=== PATIENT | female | born 1995 | race Caucasian/White ===

== ENCOUNTER → 2016-05-02 | Outpatient (CLI) | payer BC ==
[2015-04-22 09:11] VITALS: BP 125/74
--- NOTE | 2016-05-02 14:15 | RAD ---
HISTORY: Ganglion cyst Study: Three views of the left wrist Comparison: None Findings: Normal alignment. No acute fracture or dislocation. The soft tissues are unremarkable. IMPRESSION: 1. No acute osseous abnormality. Reported By:
== END ==
LOC: RAD 13:32
PROVIDERS: ATTEND Specialist
DX: M67.432 Ganglion, left wrist (principal)
CPT/HCPCS: 73100

== ENCOUNTER → 2016-07-11 | Outpatient (CLI) | payer BC ==
[2015-04-22 09:11] VITALS: BP 125/74
--- NOTE | 2016-07-12 09:29 | MRI ---
HISTORY: Wrist pain. EXAM: Non-contrast MRI exam of the left wrist. Technique: Multiplanar and multisequence MR examination of the left wrist is performed at 1.5 Mirela without the use of IV contrast. Findings: There is abnormal bone marrow edema seen within the distal 3rd/volar aspect of the scaphoid bone the scaphoid tubercle with the suggestion of a developing 'fracture' of the distal 3rd of the scaphoid bone which is probably stress related. There is adjacent edema and a T2 intense soft tissue lesion s een just beneath/volar to the flexor carpi radialis tendon on image number 13 of series 601 that isreal sures 6 x 5 millimeters, most compatible with a ganglion cyst. The combination of these findings cou ld certainly account for the patient's left-sided wrist pain and numbness. Please clinically correla te. There is no other acute fracture or focal bone marrow contusion seen. There is no evidence for osteo necrosis or a DISI / VISI deformity. The scapholunate and lunotriquetral ligaments are intact withou t tear or widening of the scapholunate or lunotriquetral intervals. There is no high-grade TFCC tear appreciated. There is no evidence for a scaphoid or carpal bone fracture. There is no significant are high-grade proximal and mid-carpal row articular cartilage loss, joint space narrowing, or degen erative change. There is no evidence for synovitis, focal joint erosion, or an inflammatory arthriti s. The transverse carpal ligament is intact. There is no tenosynovitis of the wrist tendons without addition tendon abnormalities seen. No vascular abnormalities are observed. No solid soft tissue mas ses are seen. No abnormality is seen involving the volar and/or dorsal extrinsic wrist ligaments and joint capsule. No other MSK abnormalities are seen. No susceptibility artifact is seen. IMPRESSION: Abnormal bone marrow edema seen within the distal 3rd/volar aspect of the scaphoid bone \T\ scaphoid tubercle with the suggestion of a developing where 'fracture' of the distal 3rd of the scaphoid bon e that is like stress induced. There is also adjacent edema and a T2 intense soft tissue lesion seen just beneath/volar to the flexor carpi radialis tendon on image number 13 of series 601 that measur es 6 x 5 millimeters, most compatible with a ganglion cyst. The combination of these MRI findings co uld certainly account for the patient's left-sided wrist pain and numbness. Please clinically correl ate. No other wrist joint abnormalities seen. Reported By:
== END ==
LOC: RAD 14:54
PROVIDERS: ATTEND Nurse Practitioner Family
DX: R22.32 Localized swelling, mass and lump, left upper limb (principal); R20.2 Paresthesia of skin
CPT/HCPCS: 73221

== ENCOUNTER → 2016-07-17 | Outpatient (CLI) | payer BC ==
[2015-04-22 09:11] VITALS: BP 125/74
[2016-07-17 09:02] LABS: BILIRUBIN,URINE NEGATIVE (NEGATIVE); BLOOD/HEMOGLOBIN,URINE 5+ (NEGATIVE); GLUCOSE, URINE NEGATIVE (NEGATIVE); KETONES,URINE NEGATIVE (NEGATIVE); LEUKOCYTE ESTERASE ,URINE NEGATIVE (NEGATIVE); NITRITES,URINE NEGATIVE (NEGATIVE); PROTEIN,URINE 1+ (NEGATIVE); UROBILINOGEN,URINE 1+ (NORMAL)
[2016-07-17 09:04] LABS: BASOPHILS % (AUTO) 0.6 % (0.2-1.0); EOSINOPHILS # (AUTO) 0.2 x10^3/uL (0.0-0.2); EOSINOPHILS % (AUTO) 2.4 % (0.9-2.9); HEMATOCRIT 41.5 % (36.0-47.0); HEMOGLOBIN 14.4 g/dL (12.0-16.0); LYMPHOCYTES # (AUTO) 1.9 X10^3/uL (1.3-2.9); LYMPHOCYTES % (AUTO) 28.5 % (21.0-51.0); MEAN CORPUSCULAR HEMOGLOBIN 28.1 pg (27.0-34.0); MEAN CORPUSCULAR HGB CONC 34.6 g/dL (33.0-35.0); MEAN CORPUSCULAR VOLUME 81.1 fL (80.0-100.0); MEAN PLATELET VOLUME 8.4 fL (7.4-11.0); MONOCYTES # (AUTO) 0.5 x10^3/uL (0.3-0.8); MONOCYTES % (AUTO) 7.4 % (0.0-13.0); NEUTROPHILS % (AUTO) 61.1 % (42.0-75.0); PLATELET COUNT 279 X10^3/uL (150.0-450.0); RED BLOOD COUNT 5.11 X10^6/uL (3.5-5.4); WHITE BLOOD COUNT 6.5 X10^3/uL (3.6-10.0)
[2016-07-17 09:05] LABS: ALANINE AMINOTRANSFERASE 33 Units/L (12-78); ALBUMIN 3.5 g/dL (3.4-5.0); ALKALINE PHOSPHATASE 78 Units/L (46-116); ASPARTATE AMINO TRANSFERASE 18 Units/L (15-37); BLOOD UREA NITROGEN 14 mg/dL (7-18); CALCIUM 8.6 mg/dL (8.5-10.1); CARBON DIOXIDE 25.4 mmol/L (21-32); CHLORIDE 107 mmol/L (98-107); CREATININE 0.76 mg/dL (0.55-1.02); GLUCOSE 103 mg/dL (65-99); SODIUM 142 mmol/L (136-145); TOTAL PROTEIN 7.3 g/dL (6.4-8.2); eGFR BLACK RACES > 60 (>60); eGFR NON BLACK RACES > 60 (>60)
[2016-07-17 09:15] LABS: APPEARANCE,URINE SLIGHTLY HAZY (CLEAR); BACTERIA,URINE TRACE /HPF (NEGATIVE); COLOR,URINE YELLOW (YELLOW); SQUAMOUS EPITHELIAL CELL,UR MODERATE /HPF (NEGATIVE)
[2016-07-17 09:36] LABS: SERUM PREGNANCY TEST, QUAL NEGATIVE <10 mIU/mL
[2016-07-17 09:39] LABS: ERYTHROCYTE SEDIMENTATION RATE 11 MM/HOUR (0-20)
--- NOTE | 2016-07-18 07:54 | RAD ---
HISTORY: Preop ganglion cyst removal Study: Chest two-view Comparison: None Findings: The trachea is midline. The cardiac silhouette is unremarkable. The lungs are clear without focal infiltrate or effusion. The bony thorax is unremarkable. IMPRESSION: 1. No acute cardiopulmonary disease. Reported By:
== END ==
LOC: LAB 08:20
PROVIDERS: ATTEND Orthopaedic Surgery
DX: Z01.818 Encounter for other preprocedural examination (principal); Z01.810 Encounter for preprocedural cardiovascular examination; Z01.811 Encounter for preprocedural respiratory examination; Z79.899 Other long term (current) drug therapy; Z11.8 Encounter for screening for other infectious and parasitic diseases; Z32.00 Encounter for pregnancy test, result unknown; M67.432 Ganglion, left wrist
CPT/HCPCS: 36415; 71020; 80053; 81001; 84703; 85025; 85652; 86140; 87641; 93005; 93010

== ENCOUNTER → 2016-07-20 | Day surgery (SDC) | payer BC ==
[~2016-07-20] MED LIST: BACTROBAN OINT ONE; D5 LR 1000 ML 1,000 ML IV ONE; FENTANYL INJ 100 mcg ONE; MARCAINE 0.25% INJ ONE; NS IRRIGATION 1000 ML 1,000 ML with BACITRACIN VIAL 50,000 UNT IR ONE; PERCOCET TAB 5/325 MG PO PRN; TORADOL 30 MG VIAL ONE; XYLOCAINE-MPF 0.5% IJ ONE; ZOFRAN INJ 4 MG VIAL IVP PRN
[2016-07-20] MEDS: ANCEF VIAL 1 GM ONE ×2 (09:09→10:00)
[2016-07-20] MEDS: NS 50 ML IV + SPIKE MINIBAG* 100 ML IV ONE ×2 (09:09→10:00)
[2016-07-20 12:48] VITALS: BP 118/81
== END | disposition home or self-care (01) | DRG 514 ==
LOC: SURG1 08:00
PROVIDERS: ATTEND Orthopaedic Surgery
PROC: 0RBP0ZZ Excision of Left Wrist Joint, Open Approach (ICD-10-PCS; principal; 2016-07-20 08:30)
DX: M67.432 Ganglion, left wrist (principal)
CPT/HCPCS: A4222; S0020; J0690; J1885; J2001; J3010; J7120

== ENCOUNTER 2016-07-25 07:14 | Observation (INO) | payer BC ==
[~2016-07-25 07:14] MED LIST changes: -BACTROBAN OINT ONE; -D5 LR 1000 ML 1,000 ML IV ONE; +DIPRIVAN VIAL ONE; -FENTANYL INJ 100 mcg ONE; -MARCAINE 0.25% INJ ONE; -NS IRRIGATION 1000 ML 1,000 ML with BACITRACIN VIAL 50,000 UNT IR ONE; -PERCOCET TAB 5/325 MG PO PRN; -TORADOL 30 MG VIAL ONE; +VERSED ONE; -XYLOCAINE-MPF 0.5% IJ ONE; -ZOFRAN INJ 4 MG VIAL IVP PRN
[2016-07-25 07:24] VITALS: BMI 37.8
[2016-07-25] MEDS ORDERED: NS 1000 ML 1,000 ML ONE ×2 (07:29→12:08)
[2016-07-25] MEDS ORDERED: TORADOL 30 MG VIAL IVP ONE (07:52)
[2016-07-25] MEDS ORDERED: NS 1000 ML 1,000 ML IV ONE ×2 (07:52→11:57)
--- NOTE | 2016-07-25 07:52 | DR.NAUSEAF ---
HPI - Time Seen Time seen: 07:48 - Primary Care Physician Primary Care Physician: DR. MEJIAS - Complaints Chief Complaint Doctors Comments: Patient admits to nausea,vomiting and of one days duration. Admits to stomach pain severity of 10, worse with motion, character sharp. Patient with irritability due to pain. Patients to recently having a cyst removed from left hand. Chief Complaint:: PT STATES " I WOKE UP AT 0300 THIS AM WITH N/V/D".. Self Treatment fo Chief Complaint: PT HAS SURGERY ON A CYST TO HER LEFT HAND ON SUNDAY.. - Source History Provided: Patient - Mode of Arrival Mode of Arrival: Ambulatory - Timing Onset of Chief Complaint: 07/25/16 <EUGENE SHANKAR - Last Filed: 07/25/16 08:06> - Complaints Chief Complaint Doctors Comments: PATIENT NOW HAVING DIARRHEA IN ED. ABDOMEN CRAMPING. - Reviewed Nurses Notes Reviewed: Yes - Context Onset: Spontaneous History of: None - Quality Quality: Bilious - Associated Signs and Symptoms Abdominal Pain Quality: Cramping Abdominal Pain Location: Diffuse Symptoms: Abdominal Pain, Diarrhea, Anorexia. denies: Fever <NOELLE RAMIREZ - Last Filed: 07/25/16 14:28> PMH - PMH Past Medical History: No Past Surgical History: Yes Past Surgical History Comment: CYST REMOVAL.. - Family History History of Family Medical Conditions: No - Social History Does patient currently use any type of tobacco product: No Have you used tobacco products in the last 12 months: No Type of Tobacco Use: None Does any household member use tobacco: No Alcohol Use: None Do you use any recreational Drugs:: No Lives With: Family Lives Where: Home - infectious screening In the last 2 months have you had wt loss of >10#?: NO Have you had fever, night sweats or hemotysis?: No Have you traveled outside the country in the last 6 months?: No Isolation: Standard <EUGENE SHANKAR - Last Filed: 07/25/16 08:06> ROS - Review of Systems Eyes: No Symptoms Reported ENTM: No Symptoms Reported Respiratoy: No Symptoms Reported Cardiovascular: No Symptoms Reported Gastrointestinal/Abdominal: No Symptoms Reported Genitourinary: No Symptoms Reported Neurological: No Symptoms Reported Musculoskeletal: No Symptoms Reported Integumentary: No Symptoms Reported Hematologic/Lymphatic: No Symptoms Reported Endocrine: No Symptoms Reported Psychiatric: No Symptoms Reported All Other Systems: Reviewed and Negative <EUGENE SHANKAR - Last Filed: 07/25/16 08:06> - Review of Systems Constitutional: Weakness, Fatigue. negative: Fever Gastrointestinal/Abdominal: No Symptoms Reported, Abdominal Pain, Diarrhea, Nausea, Vomiting <NOELLE RAMIREZ - Last Filed: 07/25/16 14:28> PE - General Limitations: No Limitations General Appearance: Alert - Head Head Exam: Normal Inspection, Atraumatic - Eyes Eye exam: Normal Appearance, PERRL, EOMI - ENT ENT Exam: Mucous Membranes Dry, TM's Normal Bilaterally - Neck Neck Exam: Normal Inspection, Full ROM - Chest Chest Inspection: Normal Inspection - Respiratory Respiratory Exam: Normal Lung Sounds Bilat Respiratory Exam: Bilateral Clear to Auscultation - Cardiovascular Cardiovascular Exam: Regular Rate, Normal Rhythm - Abdominal Exam Abdominal Exam: Normal Inspection, Normal Bowel Sounds, Soft Abdominal Tenderness: negative: RUQ, RLQ, LUQ, LLQ, Epigastrium, Suprapubic, Diffuse, Mild, Moderate, Severe, Other - Rectal Rectal Exam: Deferred - External Exam: Female: Deferred : Speculum Exam (Female): Deferred : Bimanual Exam (female): Deferred - Extremities Extremities Exam: Normal Inspection - Back Back Exam: Normal Inspection - Neurologic Neurological Exam: Alert, Oriented X3, CN II-XII Intact - Psychiatric Psychiatric Exam: Agitated - Skin Skin Exam: Warm, Dry, Intact <EUGENE SHANKAR - Last Filed: 07/25/16 08:06> MDM - Differential Diagnosis Differential Diagnosis: Considerations may Include:: Gastroenteritis, PUD <EUGENE SHANKAR - Last Filed: 07/25/16 08:06> ROR - Labs Reviewed Result Diagrams: 07/25/16 07:45 07/25/16 07:45 <NOELLE RAMIREZ - Last Filed: 07/25/16 14:28> - Labs Reviewed Laboratory: 07/25/16 09:55 Stool - Final WBC 8.1 X10^3/uL (3.6-10.0) 07/25/16 07:45 RBC 5.17 X10^6/uL (3.5-5.4) 07/25/16 07:45 Hgb 15.0 g/dL (12.0-16.0) 07/25/16 07:45 Hct 42.3 % (36.0-47.0) 07/25/16 07:45 MCV 81.9 fL (80.0-100.0) 07/25/16 07:45 MCH 29.1 pg (27.0-34.0) 07/25/16 07:45 MCHC 35.5 g/dL (33.0-35.0) H 07/25/16 07:45 RDW 13.9 % (11.6-16.5) 07/25/16 07:45 Plt Count 275 X10^3/uL (150.0-450.0) 07/25/16 07:45 MPV 8.7 fL (7.4-11.0) 07/25/16 07:45 Neut % 75.5 % (42.0-75.0) H 07/25/16 07:45 Lymph % 16.6 % (21.0-51.0) L 07/25/16 07:45 [place] % 4.9 % (0.0-13.0) 07/25/16 07:45 Eos % 2.3 % (0.9-2.9) 07/25/16 07:45 Baso % 0.7 % (0.2-1.0) 07/25/16 07:45 Neut # 6.1 x10^3/uL (2.2-4.8) H 07/25/16 07:45 Lymph # 1.3 X10^3/uL (1.3-2.9) 07/25/16 07:45 [place] # 0.4 x10^3/uL (0.3-0.8) 07/25/16 07:45 Eos # 0.2 x10^3/uL (0.0-0.2) 07/25/16 07:45 Baso # 0.1 X10^3/uL (0.0-0.1) 07/25/16 07:45 Absolute Nucleated RBC 0.1 /100WBC 07/25/16 07:45 Sodium 139 mmol/L (136-145) 07/25/16 07:45 Corrected Sodium TNP 07/25/16 07:45 Potassium 4.1 mmol/L (3.5-5.1) 07/25/16 07:45 Chloride 106 mmol/L (98-107) 07/25/16 07:45 Carbon Dioxide 22.2 mmol/L (21-32) 07/25/16 07:45 BUN 12 mg/dL (7-18) 07/25/16 07:45 Creatinine 0.72 mg/dL (0.55-1.02) 07/25/16 07:45 Est GFR (MDRD) Af Amer > 60 (>60) 07/25/16 07:45 Est GFR (MDRD) Non-Af > 60 (>60) 07/25/16 07:45 Glucose 104 mg/dL (65-99) H 07/25/16 07:45 Calcium 8.7 mg/dL (8.5-10.1) 07/25/16 07:45 Corrected Calcium TNP 07/25/16 07:45 Total Bilirubin 0.40 mg/dL (0.2-1.0) 07/25/16 07:45 AST 19 Units/L (15-37) 07/25/16 07:45 ALT 34 Units/L (12-78) 07/25/16 07:45 Alkaline Phosphatase 81 Units/L (46-116) 07/25/16 07:45 C-Reactive Protein 10.40 mg/L (0-3.0) H 07/25/16 07:45 Total Protein 7.2 g/dL (6.4-8.2) 07/25/16 07:45 Albumin 3.5 g/dL (3.4-5.0) 07/25/16 07:45 Globulin 3.7 g/dL (2.5-4.5) 07/25/16 07:45 Albumin/Globulin Ratio 0.9 Ratio (1.1-2.1) L 07/25/16 07:45 Specimen Type Clean catch urine 07/25/16 07:45 Urine Color Yellow (YELLOW) 07/25/16 07:45 Urine Appearance Slightly hazy (CLEAR) 07/25/16 07:45 Urine pH 5.0 (5.0 - 8.0) 07/25/16 07:45 Ur Specific [place] 1.025 (1.000-1.030) 07/25/16 07:45 Urine Protein 1+ (NEGATIVE) 07/25/16 07:45 Urine Glucose (UA) Negative (NEGATIVE) 07/25/16 07:45 Urine Ketones Negative (NEGATIVE) 07/25/16 07:45 Urine Occult Blood 1+ (NEGATIVE) 07/25/16 07:45 Urine Nitrite Negative (NEGATIVE) 07/25/16 07:45 Urine Bilirubin Negative (NEGATIVE) 07/25/16 07:45 Urine Urobilinogen Normal (NORMAL) 07/25/16 07:45 Ur Leukocyte Esterase 1+ (NEGATIVE) 07/25/16 07:45 Urine RBC 2-5 /HPF (NEGATIVE) 07/25/16 07:45 Urine WBC 2-5 /HPF (NEGATIVE) 07/25/16 07:45 Ur Squamous Epith Cells Many /HPF (NEGATIVE) 07/25/16 07:45 Urine Bacteria Trace /HPF (NEGATIVE) 07/25/16 07:45 Ur Culture Indicated? No/not indicated 07/25/16 07:45 Stool Description 15g brown liquid 07/25/16 09:55 Stool for White Cells No wbc's seen (None) 07/25/16 09:55 Stl C. diff Tox B Gene Positive (NEGATIVE) A 07/25/16 09:55 Stl C. diff 027-NAP1-BI Negative (NEGATIVE) 07/25/16 09:55 Cryptosporid parvum Ag Negative (NEGATIVE) 07/25/16 09:55 E. histolytica Antigen Negative (NEGATIVE) 07/25/16 09:55 Giardia lamblia Ag Negative (NEGATIVE) 07/25/16 09:55 H. pylori IgG Antibody Negative (NEGATIVE) 07/25/16 07:45 (NOELLE RAMIREZ) <EUGENE SHANKAR - Last Filed: 07/25/16 08:06> <NOELLE RAMIREZ - Last Filed: 07/25/16 14:28> - Diagnosis Discharge Problem: Nausea and vomiting in adult patient, C. difficile colitis, Dehydration, Gastroenteritis - Discharge Plan Disposition: ADMITTED INPATIENT Condition: Stable
[2016-07-25 07:55] LABS: BILIRUBIN,URINE NEGATIVE (NEGATIVE); BLOOD/HEMOGLOBIN,URINE 1+ (NEGATIVE); GLUCOSE, URINE NEGATIVE (NEGATIVE); KETONES,URINE NEGATIVE (NEGATIVE); LEUKOCYTE ESTERASE ,URINE 1+ (NEGATIVE); NITRITES,URINE NEGATIVE (NEGATIVE); PROTEIN,URINE 1+ (NEGATIVE); UROBILINOGEN,URINE NORMAL (NORMAL)
[2016-07-25] MEDS ORDERED: TORADOL 30 MG VIAL ONE (07:55)
[2016-07-25 08:06] LABS: APPEARANCE,URINE SLIGHTLY HAZY (CLEAR); BACTERIA,URINE TRACE /HPF (NEGATIVE); COLOR,URINE YELLOW (YELLOW); SQUAMOUS EPITHELIAL CELL,UR MANY /HPF (NEGATIVE)
[2016-07-25 08:15] LABS: ALANINE AMINOTRANSFERASE 34 Units/L (12-78); ALBUMIN 3.5 g/dL (3.4-5.0); ALKALINE PHOSPHATASE 81 Units/L (46-116); ASPARTATE AMINO TRANSFERASE 19 Units/L (15-37); BLOOD UREA NITROGEN 12 mg/dL (7-18); CALCIUM 8.7 mg/dL (8.5-10.1); CARBON DIOXIDE 22.2 mmol/L (21-32); CHLORIDE 106 mmol/L (98-107); CREATININE 0.72 mg/dL (0.55-1.02); GLUCOSE 104 mg/dL (65-99); SODIUM 139 mmol/L (136-145); TOTAL PROTEIN 7.2 g/dL (6.4-8.2); eGFR BLACK RACES > 60 (>60); eGFR NON BLACK RACES > 60 (>60)
[2016-07-25 08:25] LABS: BASOPHILS # (AUTO) 0.1 X10^3/uL (0.0-0.1); BASOPHILS % (AUTO) 0.7 % (0.2-1.0); EOSINOPHILS # (AUTO) 0.2 x10^3/uL (0.0-0.2); EOSINOPHILS % (AUTO) 2.3 % (0.9-2.9); HEMATOCRIT 42.3 % (36.0-47.0); LYMPHOCYTES # (AUTO) 1.3 X10^3/uL (1.3-2.9); LYMPHOCYTES % (AUTO) 16.6 % (21.0-51.0); MEAN CORPUSCULAR HEMOGLOBIN 29.1 pg (27.0-34.0); MEAN CORPUSCULAR HGB CONC 35.5 g/dL (33.0-35.0); MEAN CORPUSCULAR VOLUME 81.9 fL (80.0-100.0); MEAN PLATELET VOLUME 8.7 fL (7.4-11.0); MONOCYTES # (AUTO) 0.4 x10^3/uL (0.3-0.8); MONOCYTES % (AUTO) 4.9 % (0.0-13.0); NEUTROPHILS # (AUTO) 6.1 x10^3/uL (2.2-4.8); NEUTROPHILS % (AUTO) 75.5 % (42.0-75.0); PLATELET COUNT 275 X10^3/uL (150.0-450.0); RED BLOOD COUNT 5.17 X10^6/uL (3.5-5.4); RED CELL DISTRIBUTION WIDTH 13.9 % (11.6-16.5); WHITE BLOOD COUNT 8.1 X10^3/uL (3.6-10.0)
[2016-07-25] MEDS ORDERED: BENTYL I.M. INJ 10 MG IM ONE ×2 (09:03→09:05)
[2016-07-25] MEDS ORDERED: ZOFRAN INJ 4 MG VIAL ONE (09:05)
[2016-07-25] MEDS ORDERED: PEPCID 20 MG IV PREMIX* 20 MG/50 ML BAG IV ONE ×2 (09:05→09:07)
[2016-07-25] MEDS ORDERED: ZOFRAN INJ 4 MG VIAL IVP ONE (09:07)
[2016-07-25 10:54] LABS: CRYPTOSPORIDIUM PARVUM ANTIGEN NEGATIVE (NEGATIVE); GIARDIA LAMBLIA ANTIGEN NEGATIVE (NEGATIVE)
[2016-07-25] MEDS ORDERED: MORPHINE SULFATE INJ 4 MG IVP PRN (11:51)
[2016-07-25] MEDS: FLAGYL IV PREMIX 500 MG BAG 500 MG/100 ML BAG IV SCH ×3 (12:13→20:31)
[2016-07-25] MEDS: VANCOMYCIN HCL PO SCH ×2 (15:34→20:32)
--- NOTE | 2016-07-25 18:13 | DR.H&P ---
H&P - History & Physical for Day of: H&P Date: 07/25/16 - Chief Complaint Chief Complaint: N/V/D - Allergies Allergies/Adverse Reactions: Allergies Allergy/AdvReac Type Severity Reaction Status Date / Time No Known Drug Allergy Allergy Unverified 07/25/16 07:20 - History of Present Illness History of Present Illness: PATIENT IS A 20-YEAR-OLD WHITE FEMALE WHO WAS ADMISSION FROM THE er AFTER PRESENTING WITH COMPLAINTS OF NAUSEA VOMITING OR DIARRHEA. pATIENT WAS POSITIVE FOR c. DIFFICILE COLITIS. pLAN TO ADMIT FOR iv HYDRATION AND ABDOMINAL PAIN CONTROL AND iv ANTIBIOTICS. pATIENT IS STATUS POST CYST REMOVAL FROM THE LEFT WRIST PLAN TO CONTINUE MONITORING, PAIN CONTROL. REPEAT A.M. LABS - Past Surgical History Surgical History: Other - Family History Family Medical History: Cancer - Social History Does patient currently use any type of tobacco product: No Have you used tobacco products in the last 12 months: No Type of Tobacco Use: None Does any household member use tobacco: No Alcohol Use: None Drug Use: Prescription Drugs - Medications Home Medications: Cephalexin [KEFLEX CAP 500 MG *] 1 tab PO TID 07/25/16 [History Confirmed ] Oxycodone/Acet 5 mg/325 mg [PERCOCET 5/325 MG *] 1 tab PO Q6H 07/25/16 [History Confirmed 07/25/16] - Review of Systems Constitutional: Fever, Weakness Eyes: No Symptoms Reported ENT: No Symptoms Reported Respiratory: No Symptoms Reported Cardiovascular: No Symptoms Reported Gastrointestinal: Nausea, Vomiting, Abdominal Pain, Diarrhea Genitourinary: No Symptoms Reported Musculoskeletal: Other (LEFT WRIST PAIN) Neurological: No Symptoms Reported - Physical Exam Vital Signs: Temperature 98 F Pulse Rate [Left Brachial] 74 Respiratory Rate 18 Blood Pressure [Left Arm] 132/82 O2 Sat by Pulse Oximetry 97 Oriented: Normal Eyes: Normal Ear: Normal Throat: Normal Respiratory: Clear Throughout Auscultation: Bowel Sounds: Increased Tenderness: Diffuse Skin: Normal Musculoskeletal: Tender (MILD LEFT WRIST) Psychiatric: Normal Mood Description: Calm Speech Pattern: Clear - Assessment/Plan (1) C. difficile colitis Status: Acute Plan: ADMIT iv ANTIBIOTICS, PAIN CONTROL, iv HYDRATION. rEPEAT A.M. LABS, CULTURES PENDING (2) Dehydration Status: Acute (3) Gastroenteritis Status: Acute (4) Nausea and vomiting in adult patient Status: Acute
[2016-07-26] MEDS: FLAGYL IV PREMIX 500 MG BAG 500 MG/100 ML BAG IV SCH ×4 (03:33→21:08)
[2016-07-26] MEDS: VANCOMYCIN HCL PO SCH ×4 (03:33→21:11)
[2016-07-26 04:59] LABS: ALANINE AMINOTRANSFERASE 30 Units/L (12-78); ALKALINE PHOSPHATASE 70 Units/L (46-116); ASPARTATE AMINO TRANSFERASE 17 Units/L (15-37); BLOOD UREA NITROGEN 6 mg/dL (7-18); CALCIUM 8.4 mg/dL (8.5-10.1); CARBON DIOXIDE 25.2 mmol/L (21-32); CHLORIDE 109 mmol/L (98-107); COR CA(FOR HYPOALB) 9.2 mg/dL (8.5-10.1); CREATININE 0.69 mg/dL (0.55-1.02); GLUCOSE 95 mg/dL (65-99); SODIUM 142 mmol/L (136-145); TOTAL PROTEIN 6.2 g/dL (6.4-8.2); eGFR BLACK RACES > 60 (>60); eGFR NON BLACK RACES > 60 (>60)
[2016-07-26 05:13] LABS: BASOPHILS % (AUTO) 0.3 % (0.2-1.0); EOSINOPHILS # (AUTO) 0.2 x10^3/uL (0.0-0.2); EOSINOPHILS % (AUTO) 3.2 % (0.9-2.9); HEMATOCRIT 38.9 % (36.0-47.0); HEMOGLOBIN 13.8 g/dL (12.0-16.0); LYMPHOCYTES # (AUTO) 1.4 X10^3/uL (1.3-2.9); LYMPHOCYTES % (AUTO) 23.1 % (21.0-51.0); MEAN CORPUSCULAR HGB CONC 35.4 g/dL (33.0-35.0); MEAN CORPUSCULAR VOLUME 81.9 fL (80.0-100.0); MEAN PLATELET VOLUME 8.6 fL (7.4-11.0); MONOCYTES # (AUTO) 0.6 x10^3/uL (0.3-0.8); MONOCYTES % (AUTO) 9.4 % (0.0-13.0); PLATELET COUNT 237 X10^3/uL (150.0-450.0); RED BLOOD COUNT 4.75 X10^6/uL (3.5-5.4); WHITE BLOOD COUNT 6.3 X10^3/uL (3.6-10.0)
[2016-07-26] MEDS: PERCOCET TAB 5/325 MG PO SCH ×3 (09:35→21:11)
[2016-07-26] MEDS: MORPHINE SULFATE INJ 4 MG IVP PRN (09:41)
[2016-07-26] MEDS: ZOFRAN INJ 4 MG VIAL IVP PRN (10:57)
--- NOTE | 2016-07-26 13:33 | PCM.PROG ---
Progress Note - Progress Note for Day of Date: 07/26/16 - Subjective Subjective: 20 wf admitted one day ago with N/V/D abdominal pain, pt had positive c diff stool study, pt currently on iv flagyl and po vancomycin. Pt continue with co nasuea and severe left abdominal pain and mucous in stool. plan to continue iv atbx, ct scan abd/pelvis with contrast. repeat am labs - Past Medical Family Social History Past Med/Fam/Surg Hx: No changes since H&P Allergies: Allergies No Known Drug Allergy Allergy (Unverified 07/25/16 07:20) - Review of Systems ROS: No change since H&P - Vital Signs and I&O's Vital Signs: Temperature 98.3 F Pulse Rate [Left Brachial] 66 Respiratory Rate 18 Blood Pressure [Left Arm] 106/64 O2 Sat by Pulse Oximetry 96 Intake and Output: Intake & Output 07/24/16 07/25/16 07/26/16 07/27/16 11:59 11:59 11:59 11:59 Intake Total 860 Balance 860 - Physical Exam Oriented: Normal Eyes: Normal Ear: Normal Throat: Normal Auscultation: Bowel Sounds: Increased Tenderness: Diffuse, LUQ, LLQ Skin: Normal Musculoskeletal: Tender (MILD LEFT WRIST) Psychiatric: Normal Mood Description: Calm Speech Pattern: Clear, Appropriate - Laboratory and Diagnostics Result Diagrams: 07/26/16 03:50 07/26/16 03:50 Labs: Laboratory WBC 6.3 X10^3/uL (3.6-10.0) 07/26/16 03:50 RBC 4.75 X10^6/uL (3.5-5.4) 07/26/16 03:50 Hgb 13.8 g/dL (12.0-16.0) 07/26/16 03:50 Hct 38.9 % (36.0-47.0) 07/26/16 03:50 MCV 81.9 fL (80.0-100.0) 07/26/16 03:50 MCH 29.0 pg (27.0-34.0) 07/26/16 03:50 MCHC 35.4 g/dL (33.0-35.0) H 07/26/16 03:50 RDW 14.0 % (11.6-16.5) 07/26/16 03:50 Plt Count 237 X10^3/uL (150.0-450.0) 07/26/16 03:50 MPV 8.6 fL (7.4-11.0) 07/26/16 03:50 Neut % 64.0 % (42.0-75.0) 07/26/16 03:50 Lymph % 23.1 % (21.0-51.0) 07/26/16 03:50 [place] % 9.4 % (0.0-13.0) 07/26/16 03:50 Eos % 3.2 % (0.9-2.9) H 07/26/16 03:50 Baso % 0.3 % (0.2-1.0) 07/26/16 03:50 Neut # 4.0 x10^3/uL (2.2-4.8) 07/26/16 03:50 Lymph # 1.4 X10^3/uL (1.3-2.9) 07/26/16 03:50 [place] # 0.6 x10^3/uL (0.3-0.8) 07/26/16 03:50 Eos # 0.2 x10^3/uL (0.0-0.2) 07/26/16 03:50 Baso # 0.0 X10^3/uL (0.0-0.1) 07/26/16 03:50 Absolute Nucleated RBC 0.0 /100WBC 07/26/16 03:50 Sodium 142 mmol/L (136-145) 07/26/16 03:50 Corrected Sodium TNP 07/26/16 03:50 Potassium 3.7 mmol/L (3.5-5.1) 07/26/16 03:50 Chloride 109 mmol/L (98-107) H 07/26/16 03:50 Carbon Dioxide 25.2 mmol/L (21-32) 07/26/16 03:50 BUN 6 mg/dL (7-18) L 07/26/16 03:50 Creatinine 0.69 mg/dL (0.55-1.02) 07/26/16 03:50 Est GFR (MDRD) Af Amer > 60 (>60) 07/26/16 03:50 Est GFR (MDRD) Non-Af > 60 (>60) 07/26/16 03:50 Glucose 95 mg/dL (65-99) 07/26/16 03:50 Calcium 8.4 mg/dL (8.5-10.1) L 07/26/16 03:50 Corrected Calcium 9.2 mg/dL (8.5-10.1) 07/26/16 03:50 Total Bilirubin 0.60 mg/dL (0.2-1.0) 07/26/16 03:50 AST 17 Units/L (15-37) 07/26/16 03:50 ALT 30 Units/L (12-78) 07/26/16 03:50 Alkaline Phosphatase 70 Units/L (46-116) 07/26/16 03:50 C-Reactive Protein 10.40 mg/L (0-3.0) H 07/25/16 07:45 Total Protein 6.2 g/dL (6.4-8.2) L 07/26/16 03:50 Albumin 3.0 g/dL (3.4-5.0) L 07/26/16 03:50 Globulin 3.2 g/dL (2.5-4.5) 07/26/16 03:50 Albumin/Globulin Ratio 0.9 Ratio (1.1-2.1) L 07/26/16 03:50 Specimen Type Clean catch urine 07/25/16 07:45 Urine Color Yellow (YELLOW) 07/25/16 07:45 Urine Appearance Slightly hazy (CLEAR) 07/25/16 07:45 Urine pH 5.0 (5.0 - 8.0) 07/25/16 07:45 Ur Specific [place] 1.025 (1.000-1.030) 07/25/16 07:45 Urine Protein 1+ (NEGATIVE) 07/25/16 07:45 Urine Glucose (UA) Negative (NEGATIVE) 07/25/16 07:45 Urine Ketones Negative (NEGATIVE) 07/25/16 07:45 Urine Occult Blood 1+ (NEGATIVE) 07/25/16 07:45 Urine Nitrite Negative (NEGATIVE) 07/25/16 07:45 Urine Bilirubin Negative (NEGATIVE) 07/25/16 07:45 Urine Urobilinogen Normal (NORMAL) 07/25/16 07:45 Ur Leukocyte Esterase 1+ (NEGATIVE) 07/25/16 07:45 Urine RBC 2-5 /HPF (NEGATIVE) 07/25/16 07:45 Urine WBC 2-5 /HPF (NEGATIVE) 07/25/16 07:45 Ur Squamous Epith Cells Many /HPF (NEGATIVE) 07/25/16 07:45 Urine Bacteria Trace /HPF (NEGATIVE) 07/25/16 07:45 Ur Culture Indicated? No/not indicated 07/25/16 07:45 Stool Description 15g brown liquid 07/25/16 09:55 Stool for White Cells No wbc's seen (None) 07/25/16 09:55 Stl C. diff Tox B Gene Positive (NEGATIVE) A 07/25/16 09:55 Stl C. diff 027-NAP1-BI Negative (NEGATIVE) 07/25/16 09:55 Cryptosporid parvum Ag Negative (NEGATIVE) 07/25/16 09:55 E. histolytica Antigen Negative (NEGATIVE) 07/25/16 09:55 Giardia lamblia Ag Negative (NEGATIVE) 07/25/16 09:55 H. pylori IgG Antibody Negative (NEGATIVE) 07/25/16 07:45 - Plan (1) Abdominal pain Status: Acute Qualifiers: Abdominal location: A Plan: continue IV atbx for c diff, CT YAN/PELVIS TODAY. RESUME FULL LIQUID DIET TOLERATED BY PT AFTER CT (2) C. difficile colitis Status: Acute Plan: iv ANTIBIOTICS, PAIN CONTROL, iv HYDRATION. rEPEAT A.M. LABS, CULTURES PENDING (3) Dehydration Status: Acute (4) Gastroenteritis Status: Acute (5) Nausea and vomiting in adult patient Status: Acute
[2016-07-26] MEDS ORDERED: NS 100 ML IV 100 ML IV ONE (17:45)
--- NOTE | 2016-07-26 19:55 | CT ---
HISTORY: Left upper quadrant left lower quadrant abdominal pain, nausea and vomiting, diarrhea, posi tive for C diff. Study: CT abdomen and pelvis with contrast Comparison: None Technique: Multiple axial images of the abdomen and pelvis were obtained from the lung bases to the pubic symph ysis after the administration of IV contrast. Findings: The visualized portions of the lung bases are unremarkable. The liver, spleen, pancreas, kidneys, and adrenal glands are unremarkable in their CT appearance. Th e gallbladder is unremarkable in its CT appearance. The colon is unremarkable in appearance . No si gnificant colonic wall thickening is identified. There is mild wall thickening involving the termina l ileum in a few loops of distal ileum , suggesting a nonspecific infectious versus inflammatory ent eritis. There is no free fluid or free air within the abdomen and pelvis. No dilated loops of bowel are identified. The appendix is normal in appearance and without inflammatory change. The urinary bl adder is grossly unremarkable. The bony structures are grossly intact. IMPRESSION: 1. Mild wall thickening involving the terminal ileum and a few loops of distal ileum, suggesting a nonspecific infectious versus inflammatory enteritis. The colon is unremarkable in appearance. Reported By:
[2016-07-27] MEDS: VANCOMYCIN HCL PO SCH ×4 (03:25→20:47)
[2016-07-27] MEDS: FLAGYL IV PREMIX 500 MG BAG 500 MG/100 ML BAG IV SCH ×4 (03:25→20:47)
[2016-07-27] MEDS: PERCOCET TAB 5/325 MG PO SCH ×5 (04:06→20:48)
[2016-07-27 04:41] LABS: BASOPHILS % (AUTO) 0.6 % (0.2-1.0); EOSINOPHILS # (AUTO) 0.3 x10^3/uL (0.0-0.2); EOSINOPHILS % (AUTO) 5.1 % (0.9-2.9); HEMATOCRIT 38.7 % (36.0-47.0); HEMOGLOBIN 13.6 g/dL (12.0-16.0); LYMPHOCYTES # (AUTO) 1.7 X10^3/uL (1.3-2.9); LYMPHOCYTES % (AUTO) 27.8 % (21.0-51.0); MEAN CORPUSCULAR HEMOGLOBIN 28.7 pg (27.0-34.0); MEAN CORPUSCULAR HGB CONC 35.1 g/dL (33.0-35.0); MEAN CORPUSCULAR VOLUME 81.8 fL (80.0-100.0); MEAN PLATELET VOLUME 8.4 fL (7.4-11.0); MONOCYTES # (AUTO) 0.6 x10^3/uL (0.3-0.8); MONOCYTES % (AUTO) 10.4 % (0.0-13.0); NEUTROPHILS # (AUTO) 3.4 x10^3/uL (2.2-4.8); NEUTROPHILS % (AUTO) 56.1 % (42.0-75.0); PLATELET COUNT 242 X10^3/uL (150.0-450.0); RED BLOOD COUNT 4.73 X10^6/uL (3.5-5.4); RED CELL DISTRIBUTION WIDTH 13.7 % (11.6-16.5); WHITE BLOOD COUNT 6.1 X10^3/uL (3.6-10.0)
[2016-07-27 04:58] LABS: ALANINE AMINOTRANSFERASE 32 Units/L (12-78); ALKALINE PHOSPHATASE 69 Units/L (46-116); AMYLASE 27 Units/L (25-115); ASPARTATE AMINO TRANSFERASE 19 Units/L (15-37); BLOOD UREA NITROGEN 7 mg/dL (7-18); CALCIUM 8.7 mg/dL (8.5-10.1); CARBON DIOXIDE 24.8 mmol/L (21-32); CHLORIDE 108 mmol/L (98-107); COR CA(FOR HYPOALB) 9.5 mg/dL (8.5-10.1); CREATININE 0.68 mg/dL (0.55-1.02); GLUCOSE 88 mg/dL (65-99); LIPASE 71 Units/L (73-393); SODIUM 141 mmol/L (136-145); TOTAL PROTEIN 6.3 g/dL (6.4-8.2); eGFR BLACK RACES > 60 (>60); eGFR NON BLACK RACES > 60 (>60)
[2016-07-27] MEDS: MORPHINE SULFATE INJ 4 MG IVP PRN ×2 (08:48→20:47)
[2016-07-27] MEDS: ZOFRAN INJ 4 MG VIAL IVP PRN ×2 (08:49→22:27)
[2016-07-27] MEDS: LIBRAX PO SCH ×3 (11:43→22:27)
--- NOTE | 2016-07-27 18:20 | PCM.PROG ---
Progress Note - Progress Note for Day of Date: 07/27/16 - Subjective Subjective: 20 wf admitted on 07/25 with N/V/D abdominal pain, pt had positive c diff stool study, pt currently on iv flagyl and po vancomycin.. plan to continue iv atbx, ct scan abd/pelvis with contrast revealed enteritis. repeat am labs - Past Medical Family Social History Past Med/Fam/Surg Hx: No changes since H&P Allergies: Allergies No Known Drug Allergy Allergy (Unverified 07/25/16 07:20) - Review of Systems ROS: No change since H&P - Vital Signs and I&O's Vital Signs: Temperature 97.9 F Pulse Rate [Left Brachial] 95 Respiratory Rate 20 Blood Pressure [Left Arm] 118/60 O2 Sat by Pulse Oximetry 98 Intake and Output: Intake & Output 07/25/16 07/26/16 07/27/16 07/28/16 11:59 11:59 11:59 11:59 Intake Total 860 1485 677 Balance 860 1485 677 - Physical Exam Oriented: Normal Eyes: Normal Ear: Normal Throat: Normal Respiratory: Normal Auscultation: Bowel Sounds: Increased Tenderness: Diffuse, LUQ, LLQ Skin: Normal Musculoskeletal: Tender (MILD LEFT WRIST) Psychiatric: Normal Mood Description: Calm Speech Pattern: Clear, Appropriate - Laboratory and Diagnostics Result Diagrams: 07/27/16 03:30 07/27/16 03:30 Labs: Laboratory WBC 6.1 X10^3/uL (3.6-10.0) 07/27/16 03:30 RBC 4.73 X10^6/uL (3.5-5.4) 07/27/16 03:30 Hgb 13.6 g/dL (12.0-16.0) 07/27/16 03:30 Hct 38.7 % (36.0-47.0) 07/27/16 03:30 MCV 81.8 fL (80.0-100.0) 07/27/16 03:30 MCH 28.7 pg (27.0-34.0) 07/27/16 03:30 MCHC 35.1 g/dL (33.0-35.0) H 07/27/16 03:30 RDW 13.7 % (11.6-16.5) 07/27/16 03:30 Plt Count 242 X10^3/uL (150.0-450.0) 07/27/16 03:30 MPV 8.4 fL (7.4-11.0) 07/27/16 03:30 Neut % 56.1 % (42.0-75.0) 07/27/16 03:30 Lymph % 27.8 % (21.0-51.0) 07/27/16 03:30 [place] % 10.4 % (0.0-13.0) 07/27/16 03:30 Eos % 5.1 % (0.9-2.9) H 07/27/16 03:30 Baso % 0.6 % (0.2-1.0) 07/27/16 03:30 Neut # 3.4 x10^3/uL (2.2-4.8) 07/27/16 03:30 Lymph # 1.7 X10^3/uL (1.3-2.9) 07/27/16 03:30 [place] # 0.6 x10^3/uL (0.3-0.8) 07/27/16 03:30 Eos # 0.3 x10^3/uL (0.0-0.2) H 07/27/16 03:30 Baso # 0.0 X10^3/uL (0.0-0.1) 07/27/16 03:30 Absolute Nucleated RBC 0.1 /100WBC 07/27/16 03:30 Sodium 141 mmol/L (136-145) 07/27/16 03:30 Corrected Sodium TNP 07/27/16 03:30 Potassium 3.6 mmol/L (3.5-5.1) 07/27/16 03:30 Chloride 108 mmol/L (98-107) H 07/27/16 03:30 Carbon Dioxide 24.8 mmol/L (21-32) 07/27/16 03:30 BUN 7 mg/dL (7-18) 07/27/16 03:30 Creatinine 0.68 mg/dL (0.55-1.02) 07/27/16 03:30 Est GFR (MDRD) Af Amer > 60 (>60) 07/27/16 03:30 Est GFR (MDRD) Non-Af > 60 (>60) 07/27/16 03:30 Glucose 88 mg/dL (65-99) 07/27/16 03:30 Calcium 8.7 mg/dL (8.5-10.1) 07/27/16 03:30 Corrected Calcium 9.5 mg/dL (8.5-10.1) 07/27/16 03:30 Total Bilirubin 0.50 mg/dL (0.2-1.0) 07/27/16 03:30 AST 19 Units/L (15-37) 07/27/16 03:30 ALT 32 Units/L (12-78) 07/27/16 03:30 Alkaline Phosphatase 69 Units/L (46-116) 07/27/16 03:30 C-Reactive Protein 10.40 mg/L (0-3.0) H 07/25/16 07:45 Total Protein 6.3 g/dL (6.4-8.2) L 07/27/16 03:30 Albumin 3.0 g/dL (3.4-5.0) L 07/27/16 03:30 Globulin 3.3 g/dL (2.5-4.5) 07/27/16 03:30 Albumin/Globulin Ratio 0.9 Ratio (1.1-2.1) L 07/27/16 03:30 Amylase 27 Units/L (25-115) 07/27/16 03:30 Lipase 71 Units/L (73-393) L 07/27/16 03:30 Specimen Type Clean catch urine 07/25/16 07:45 Urine Color Yellow (YELLOW) 07/25/16 07:45 Urine Appearance Slightly hazy (CLEAR) 07/25/16 07:45 Urine pH 5.0 (5.0 - 8.0) 07/25/16 07:45 Ur Specific [place] 1.025 (1.000-1.030) 07/25/16 07:45 Urine Protein 1+ (NEGATIVE) 07/25/16 07:45 Urine Glucose (UA) Negative (NEGATIVE) 07/25/16 07:45 Urine Ketones Negative (NEGATIVE) 07/25/16 07:45 Urine Occult Blood 1+ (NEGATIVE) 07/25/16 07:45 Urine Nitrite Negative (NEGATIVE) 07/25/16 07:45 Urine Bilirubin Negative (NEGATIVE) 07/25/16 07:45 Urine Urobilinogen Normal (NORMAL) 07/25/16 07:45 Ur Leukocyte Esterase 1+ (NEGATIVE) 07/25/16 07:45 Urine RBC 2-5 /HPF (NEGATIVE) 07/25/16 07:45 Urine WBC 2-5 /HPF (NEGATIVE) 07/25/16 07:45 Ur Squamous Epith Cells Many /HPF (NEGATIVE) 07/25/16 07:45 Urine Bacteria Trace /HPF (NEGATIVE) 07/25/16 07:45 Ur Culture Indicated? No/not indicated 07/25/16 07:45 Stool Description 15g brown liquid 07/25/16 09:55 Stool for White Cells No wbc's seen (None) 07/25/16 09:55 Stl C. diff Tox B Gene Positive (NEGATIVE) A 07/25/16 09:55 Stl C. diff [id number] Negative (NEGATIVE) 07/25/16 09:55 Cryptosporid parvum Ag Negative (NEGATIVE) 07/25/16 09:55 E. histolytica Antigen Negative (NEGATIVE) 07/25/16 09:55 Giardia lamblia Ag Negative (NEGATIVE) 07/25/16 09:55 H. pylori IgG Antibody Negative (NEGATIVE) 07/25/16 07:45 - Plan (1) Abdominal pain Status: Acute Qualifiers: Abdominal location: A Plan: continue IV atbx for c diff, CT YAN/PELVIS report on chart. RESUME FULL LIQUID DIET TOLERATED BY PT AFTER CT (2) C. difficile colitis Status: Acute Plan: iv ANTIBIOTICS, PAIN CONTROL, iv HYDRATION. rEPEAT A.M. LABS, CULTURES PENDING (3) Dehydration Status: Acute (4) Gastroenteritis Status: Acute (5) Nausea and vomiting in adult patient Status: Acute
[2016-07-28] MEDS: FLAGYL IV PREMIX 500 MG BAG 500 MG/100 ML BAG IV SCH ×2 (04:42→08:43)
[2016-07-28] MEDS: VANCOMYCIN HCL PO SCH ×2 (04:43→08:43)
[2016-07-28] MEDS: PERCOCET TAB 5/325 MG PO SCH (04:43)
[2016-07-28 06:19] LABS: BASOPHILS % (AUTO) 0.5 % (0.2-1.0); EOSINOPHILS # (AUTO) 0.2 x10^3/uL (0.0-0.2); EOSINOPHILS % (AUTO) 3.6 % (0.9-2.9); HEMATOCRIT 39.1 % (36.0-47.0); HEMOGLOBIN 13.9 g/dL (12.0-16.0); LYMPHOCYTES # (AUTO) 1.6 X10^3/uL (1.3-2.9); MEAN CORPUSCULAR HEMOGLOBIN 28.8 pg (27.0-34.0); MEAN CORPUSCULAR HGB CONC 35.4 g/dL (33.0-35.0); MEAN CORPUSCULAR VOLUME 81.4 fL (80.0-100.0); MEAN PLATELET VOLUME 8.7 fL (7.4-11.0); MONOCYTES # (AUTO) 0.7 x10^3/uL (0.3-0.8); MONOCYTES % (AUTO) 9.4 % (0.0-13.0); NEUTROPHILS # (AUTO) 4.4 x10^3/uL (2.2-4.8); NEUTROPHILS % (AUTO) 63.5 % (42.0-75.0); PLATELET COUNT 238 X10^3/uL (150.0-450.0); RED CELL DISTRIBUTION WIDTH 13.8 % (11.6-16.5); WHITE BLOOD COUNT 6.9 X10^3/uL (3.6-10.0)
[2016-07-28] MEDS: LIBRAX PO SCH (06:44)
[2016-07-28 06:47] LABS: ALANINE AMINOTRANSFERASE 41 Units/L (12-78); ALBUMIN 3.1 g/dL (3.4-5.0); ALKALINE PHOSPHATASE 68 Units/L (46-116); ASPARTATE AMINO TRANSFERASE 27 Units/L (15-37); BLOOD UREA NITROGEN 8 mg/dL (7-18); CALCIUM 8.8 mg/dL (8.5-10.1); CHLORIDE 107 mmol/L (98-107); COR CA(FOR HYPOALB) 9.5 mg/dL (8.5-10.1); CREATININE 0.68 mg/dL (0.55-1.02); GLUCOSE 87 mg/dL (65-99); SODIUM 142 mmol/L (136-145); TOTAL PROTEIN 6.5 g/dL (6.4-8.2); eGFR BLACK RACES > 60 (>60); eGFR NON BLACK RACES > 60 (>60)
[2016-07-28 08:06] VITALS: BP 96/51
== END 2016-07-28 10:45 | disposition home or self-care (01) | DRG 373 ==
LOC: ER 07:26 → MED/SURG 11:47
PROVIDERS: ADMIT Internal Medicine; ATTEND Internal Medicine
DX: A04.7 Enterocolitis due to Clostridium difficile (principal); E86.0 Dehydration; K52.89 Other specified noninfective gastroenteritis and colitis; R10.84 Generalized abdominal pain; R11.2 Nausea with vomiting, unspecified; R79.82 Elevated C-reactive protein (CRP)
CPT/HCPCS: 36415; 74177; 80053; 81001; 82150; 83690; 85025; 86140; 86677; 87045; 87205; 87328; 87329; 87336; 87427; 87493; 87899; 96365; 96372; 96374; 96375; 99284; A4222; S0028; S0030; G0378; J0500; J1885; J2270; J2405

== ENCOUNTER 2016-09-19 13:21 | Inpatient (IN) | payer BC ==
[2016-09-19] MEDS ORDERED: NS 1000 ML 1,000 ML IV SCH (14:00)
[2016-09-19] MEDS ORDERED: ZOFRAN INJ 4 MG VIAL IVP PRN (14:41)
--- NOTE | 2016-09-19 14:48 | DR.H&P ---
H&P - History & Physical for Day of: H&P Date: 09/19/16 - Chief Complaint Chief Complaint: ABDOMINAL PAIN, N/V - Allergies Allergies/Adverse Reactions: Allergies Allergy/AdvReac Type Severity Reaction Status Date / Time MS No Known Drug Allergy Allergy Unverified 09/19/16 14:31 [No Known Drug Allergy] - History of Present Illness History of Present Illness: 20 WF DIRECT ADMIT FROM DR KHAN OFFICE. PT HAS CO INTRACTABLE UPPER ABDOMINAL PAIN, FOOD INTOLERANCE, N/V 20 LBS WEIGHT LOSS. PT WAS TREATED FOR C DIFF IN JULY, PT STATES SHE TOOK ANTIBIOTICS AND DIARRHEA RESOLVED. SINCE THEN, THEN HAS CONTINUED WITH NAUSEA FOOD INTOLERANCE, BLOATING ,RUQ AND EPIGASTRIC PAIN. PT HAD ABDNORMAL GALLBLADDER US, PLAN TO ADMIT FOR HIDA SCAN, PAIN AND NAUSEA CONTROL, NPO FOR POSSIBLE EGD THIS AFTERNOON. - Past Medical History Past Medical History: denies: Coronary Artery Disease, Hypertension - Past Surgical History Surgical History: Other - Family History Family Medical History: Cancer - Social History Does patient currently use any type of tobacco product: No Have you used tobacco products in the last 12 months: No Type of Tobacco Use: None Does any household member use tobacco: No Alcohol Use: None Drug Use: None - Medications Home Medications: Phentermine HCl [Adipex-P] 1 tab PO DAILY 09/19/16 [History Confirmed 09/19/16] - Review of Systems Constitutional: Weakness Eyes: No Symptoms Reported ENT: No Symptoms Reported Respiratory: No Symptoms Reported Cardiovascular: No Symptoms Reported Gastrointestinal: Nausea, Vomiting, Abdominal Pain, Diarrhea Genitourinary: No Symptoms Reported Musculoskeletal: No Symptoms Reported Skin: No Symptoms Reported Neurological: No Symptoms Reported - Physical Exam Vital Signs: Temperature 98.1 F Pulse Rate [Left Radial] 102 Respiratory Rate 18 Blood Pressure [Left Arm] 120/77 Blood Pressure 96/51 O2 Sat by Pulse Oximetry 98 Oriented: Normal Eyes: Normal Ear: Normal Nose: Normal Throat: Normal Respiratory: Clear Throughout Cardiovascular: Normal Auscultation: Bowel Sounds: Increased Tenderness: RUQ, LUQ, Epigastric Skin: Normal Musculoskeletal: Normal Psychiatric: Normal Mood Description: Calm (S) Speech Pattern: Clear - Assessment/Plan (1) Biliary dyskinesia Status: Acute Plan: ADMIT, GB US DIMENSION SPECIFICATION INSPECTOR, HIDA Q AM, IV HYDRATION. PAIN AND NAUSEA CONTROL, NPO FOR POSSIBLE EGD THIS AFTERNOON. DISCUSSED SURGICAL CONSULT (2) RUQ pain Status: Acute (3) Nausea & vomiting Qualifiers: Vomiting type: V Vomiting Intractability: V Status: Acute (4) Epigastric pain Status: Acute Plan: CONSULT MEJIAS FOR EGD TODAY, KEEP NPO. PPI THERAPY, PAIN CONTROL
[2016-09-19 14:49] VITALS: BMI 35.5
[2016-09-19] MEDS ORDERED: D5 LR 1000 ML 1,000 ML IV ONE (15:03)
[2016-09-19 15:06] LABS: ALANINE AMINOTRANSFERASE 25 Units/L (12-78); ALBUMIN 3.9 g/dL (3.4-5.0); ALKALINE PHOSPHATASE 84 Units/L (46-116); ASPARTATE AMINO TRANSFERASE 14 Units/L (15-37); BLOOD UREA NITROGEN 11 mg/dL (7-18); CALCIUM 8.8 mg/dL (8.5-10.1); CARBON DIOXIDE 29.9 mmol/L (21-32); CHLORIDE 104 mmol/L (98-107); CREATININE 0.63 mg/dL (0.55-1.02); GLUCOSE 79 mg/dL (65-99); SODIUM 142 mmol/L (136-145); TOTAL PROTEIN 7.7 g/dL (6.4-8.2); eGFR BLACK RACES > 60 (>60); eGFR NON BLACK RACES > 60 (>60)
[2016-09-19 15:08] LABS: BASOPHILS # (AUTO) 0.1 X10^3/uL (0.0-0.1); BASOPHILS % (AUTO) 0.7 % (0.2-1.0); EOSINOPHILS # (AUTO) 0.1 x10^3/uL (0.0-0.2); EOSINOPHILS % (AUTO) 0.8 % (0.9-2.9); HEMOGLOBIN 15.4 g/dL (12.0-16.0); LYMPHOCYTES # (AUTO) 1.3 X10^3/uL (1.3-2.9); MEAN CORPUSCULAR HEMOGLOBIN 29.7 pg (27.0-34.0); MEAN CORPUSCULAR HGB CONC 35.8 g/dL (33.0-35.0); MEAN PLATELET VOLUME 8.5 fL (7.4-11.0); MONOCYTES # (AUTO) 0.7 x10^3/uL (0.3-0.8); MONOCYTES % (AUTO) 7.4 % (0.0-13.0); NEUTROPHILS # (AUTO) 7.3 x10^3/uL (2.2-4.8); NEUTROPHILS % (AUTO) 77.1 % (42.0-75.0); PLATELET COUNT 253 X10^3/uL (150.0-450.0); RED BLOOD COUNT 5.18 X10^6/uL (3.5-5.4); RED CELL DISTRIBUTION WIDTH 13.9 % (11.6-16.5); WHITE BLOOD COUNT 9.5 X10^3/uL (3.6-10.0)
[2016-09-19] MEDS ORDERED: DIPRIVAN VIAL 20 ML ONE (15:09)
[2016-09-19] MEDS ORDERED: XYLOCAINE-MPF 1% ONE (15:09)
[2016-09-19] MEDS ORDERED: NS 1000 ML 1,000 ML ONE (15:39)
[2016-09-19] MEDS: PROTONIX INJ 40 MG VIAL IVP SCH (15:56)
[2016-09-19] MEDS: TYLENOL 325 MG TAB PO PRN (16:05)
[2016-09-19] MEDS: MORPHINE SULFATE INJ 2 MG IVP PRN (19:45)
[2016-09-20] MEDS ORDERED: NS 1000 ML 1,000 ML ONE (01:11)
[2016-09-20] MEDS: NS 1000 ML 1,000 ML IV SCH ×3 (02:21→18:21)
[2016-09-20] MEDS: PROTONIX INJ 40 MG VIAL IVP SCH (08:25)
[2016-09-20] MEDS: TYLENOL 325 MG TAB PO PRN (08:37)
--- NOTE | 2016-09-20 11:19 | NM ---
HISTORY: Right upper quadrant pain. Nausea and vomiting. Food intolerance. Weight loss. Study: Nuclear medicine HIDA scan with ejection fraction Comparison: Right upper quadrant ultrasound from September 19, 2016. Technique: Multiple scintigraphic images of the abdomen were obtained the intravenous administration of 5.4 mCi of technetium labeled Choletec. Following distention of the gallbladder with radiotracer, 8 oz of Ensure was administered orally. A n estimated gallbladder ejection fraction was calculated based on the resulting physiologic response . Findings: Homogeneous uptake of radiotracer is seen throughout the liver. The intrabiliary ductal system is o bserved normally. The common hepatic and common bile duct are unremarkable with normal biliary-rui l transit. The gallbladder is observed to fill normally. After the oral administration of Ensure, a gallbladder ejection fraction of 20.9% (normal > 35%) is observed. IMPRESSION: 1. Normal hepatobiliary imaging scan. 2. Abnormal gallbladder ejection fraction of 20.9%. Clinical correlation for gallbladder dyskinesia or cholecystitis is recommended. Reported By:
[2016-09-20 15:59] LABS: SERUM PREGNANCY TEST, QUAL NEGATIVE <10 mIU/mL
--- NOTE | 2016-09-20 17:43 | PCM.PROG ---
Progress Note - Progress Note for Day of Date: 09/20/16 - Subjective Subjective: 20WF ADMITTED ONE DAY AGO WITH GASTRITIS AND ABNORMAL GALLBLADDER US. PT NPO FOR HIDA SCAN AND CONSULT DR OROZCO FOR LAP STANISLAV. PT HAS EGD YESTERDAY PER DR MEJIAS WITH FINDINGS OF GASTRITIS. PLAN TO CONTINUE PAIN AND NAUSEA CONTROL. REPEAT AM LABS, NPO AFTER MIDNIGHT FOR LAP STANISLAV - Past Medical Family Social History Past Med/Fam/Surg Hx: No changes since H&P Allergies: Allergies No Known Drug Allergies [NKDA] Allergy (Unverified 09/20/16 00:38) copied from previous listed [facility] allergy - Review of Systems ROS: No change since H&P - Vital Signs and I&O's Vital Signs: Temperature 98.6 F Pulse Rate [Left Radial] 79 Respiratory Rate 18 Blood Pressure [Left Arm] 110/66 Blood Pressure 96/51 O2 Sat by Pulse Oximetry 98 Intake and Output: Intake & Output 09/18/16 09/19/16 09/20/16 09/21/16 11:59 11:59 11:59 11:59 Intake Total 1100 420 Balance 1100 420 - Physical Exam Oriented: Normal Eyes: Normal Ear: Normal Nose: Normal Throat: Normal Cardiovascular: Normal Auscultation: Bowel Sounds: Increased Tenderness: RUQ, LUQ, Epigastric Skin: Normal Musculoskeletal: Normal Psychiatric: Normal Mood Description: Calm (S) Speech Pattern: Clear - Laboratory and Diagnostics Result Diagrams: 09/19/16 14:24 09/19/16 14:24 Labs: Laboratory WBC 9.5 X10^3/uL (3.6-10.0) 09/19/16 14:24 RBC 5.18 X10^6/uL (3.5-5.4) 09/19/16 14:24 Hgb 15.4 g/dL (12.0-16.0) 09/19/16 14:24 Hct 43.0 % (36.0-47.0) 09/19/16 14:24 MCV 83.0 fL (80.0-100.0) 09/19/16 14:24 MCH 29.7 pg (27.0-34.0) 09/19/16 14:24 MCHC 35.8 g/dL (33.0-35.0) H 09/19/16 14:24 RDW 13.9 % (11.6-16.5) 09/19/16 14:24 Plt Count 253 X10^3/uL (150.0-450.0) 09/19/16 14:24 MPV 8.5 fL (7.4-11.0) 09/19/16 14:24 Neut % 77.1 % (42.0-75.0) H 09/19/16 14:24 Lymph % 14.0 % (21.0-51.0) L 09/19/16 14:24 [place] % 7.4 % (0.0-13.0) 09/19/16 14:24 Eos % 0.8 % (0.9-2.9) L 09/19/16 14:24 Baso % 0.7 % (0.2-1.0) 09/19/16 14:24 Neut # 7.3 x10^3/uL (2.2-4.8) H 09/19/16 14:24 Lymph # 1.3 X10^3/uL (1.3-2.9) 09/19/16 14:24 [place] # 0.7 x10^3/uL (0.3-0.8) 09/19/16 14:24 Eos # 0.1 x10^3/uL (0.0-0.2) 09/19/16 14:24 Baso # 0.1 X10^3/uL (0.0-0.1) 09/19/16 14:24 Absolute Nucleated RBC 0.0 /100WBC 09/19/16 14:24 Sodium 142 mmol/L (136-145) 09/19/16 14:24 Corrected Sodium TNP 09/19/16 14:24 Potassium 3.5 mmol/L (3.5-5.1) 09/19/16 14:24 Chloride 104 mmol/L (98-107) 09/19/16 14:24 Carbon Dioxide 29.9 mmol/L (21-32) 09/19/16 14:24 BUN 11 mg/dL (7-18) 09/19/16 14:24 Creatinine 0.63 mg/dL (0.55-1.02) 09/19/16 14:24 Est GFR (MDRD) Af Amer > 60 (>60) 09/19/16 14:24 Est GFR (MDRD) Non-Af > 60 (>60) 09/19/16 14:24 Glucose 79 mg/dL (65-99) 09/19/16 14:24 Calcium 8.8 mg/dL (8.5-10.1) 09/19/16 14:24 Corrected Calcium TNP 09/19/16 14:24 Total Bilirubin 1.00 mg/dL (0.2-1.0) 09/19/16 14:24 AST 14 Units/L (15-37) L 09/19/16 14:24 ALT 25 Units/L (12-78) 09/19/16 14:24 Alkaline Phosphatase 84 Units/L (46-116) 09/19/16 14:24 Total Protein 7.7 g/dL (6.4-8.2) 09/19/16 14:24 Albumin 3.9 g/dL (3.4-5.0) 09/19/16 14:24 Globulin 3.8 g/dL (2.5-4.5) 09/19/16 14:24 Albumin/Globulin Ratio 1.0 Ratio (1.1-2.1) L 09/19/16 14:24 HCG, Qual Negative <10 mIU/mL 09/20/16 15:45 Tissue Pathology To follow 09/19/16 15:15 - Plan (1) Biliary dyskinesia Status: Acute Plan: HIDA THIS AM, IV HYDRATION. PAIN AND NAUSEA CONTROL, EGD DONE LAST PM PER DR MEJIAS. CONTINUE PPI THERAPY (2) RUQ pain Status: Acute (3) Nausea & vomiting Status: Acute Qualifiers: Vomiting type: V Vomiting Intractability: V (4) Epigastric pain Status: Acute Plan: PPI THERAPY, PAIN CONTROL
[2016-09-20] MEDS: MORPHINE SULFATE INJ 2 MG IVP PRN (18:48)
[2016-09-20] MEDS: NORCO 5/325 MG TAB PO PRN (21:43)
[2016-09-21] MEDS: NS 1000 ML 1,000 ML IV SCH ×2 (03:00→08:03)
[2016-09-21] MEDS: PROTONIX INJ 40 MG VIAL IVP SCH (08:49)
[2016-09-21] MEDS: MORPHINE SULFATE INJ 2 MG IVP PRN (12:57)
[2016-09-21] MEDS: NORCO 5/325 MG TAB PO PRN (17:10)
[2016-09-21] MEDS ORDERED: FENTANYL INJ 250 mcg ONE (18:59)
[2016-09-21] MEDS ORDERED: DILAUDID INJ ONE (19:00)
[2016-09-21] MEDS ORDERED: LR 1000 ML IV 1,000 ML IV ONE ×2 (19:07→20:23)
[2016-09-21] MEDS ORDERED: ANCEF VIAL 1 GM ONE (19:08)
[2016-09-21] MEDS ORDERED: NS 50 ML IV + SPIKE MINIBAG* 100 ML IV ONE (19:08)
[2016-09-21] MEDS ORDERED: MARCAINE 0.25% WITH EPI IJ ONE (19:29)
[2016-09-21] MEDS ORDERED: XYLOCAINE-MPF 1% ONE (19:29)
[2016-09-21] MEDS ORDERED: FENTANYL INJ 100 mcg ONE (20:03)
[2016-09-21] MEDS ORDERED: NS IRRIGATION 1000 ML 3,000 ML IR ONE (20:10)
[2016-09-21] MEDS ORDERED: REGLAN INJ 10 MG VIAL IVP PRN (20:53)
[2016-09-21] MEDS ORDERED: BENADRYL INJ 50 MG VIAL IVP PRN (20:53)
[2016-09-21] MEDS ORDERED: ZOFRAN INJ 4 MG VIAL IVP PRN (20:53)
[2016-09-21] MEDS ORDERED: PHENERGAN INJ 25 MG IVP PRN (20:53)
[2016-09-21] MEDS ORDERED: DILAUDID INJ IVP PRN (20:53)
[2016-09-21] MEDS ORDERED: BENADRYL INJ 50 MG VIAL ONE (21:19)
[2016-09-22] MEDS: NS 1000 ML 1,000 ML IV SCH ×2 (01:22→12:43)
[2016-09-22] MEDS: NORCO 5/325 MG TAB PO PRN ×2 (05:15→09:20)
[2016-09-22 06:21] LABS: ALANINE AMINOTRANSFERASE 39 Units/L (12-78); ALBUMIN 2.9 g/dL (3.4-5.0); ALKALINE PHOSPHATASE 65 Units/L (46-116); ASPARTATE AMINO TRANSFERASE 34 Units/L (15-37); BLOOD UREA NITROGEN 5 mg/dL (7-18); CARBON DIOXIDE 31.7 mmol/L (21-32); CHLORIDE 104 mmol/L (98-107); COR CA(FOR HYPOALB) 8.9 mg/dL (8.5-10.1); CREATININE 0.62 mg/dL (0.55-1.02); GLUCOSE 96 mg/dL (65-99); SODIUM 140 mmol/L (136-145); TOTAL PROTEIN 6.2 g/dL (6.4-8.2); eGFR BLACK RACES > 60 (>60); eGFR NON BLACK RACES > 60 (>60)
[2016-09-22] MEDS ORDERED: MYLICON TAB 80 MG CHEW PO PRN (06:57)
[2016-09-22 07:41] LABS: BASOPHILS % (AUTO) 0.4 % (0.2-1.0); EOSINOPHILS # (AUTO) 0.1 x10^3/uL (0.0-0.2); EOSINOPHILS % (AUTO) 0.7 % (0.9-2.9); HEMATOCRIT 39.6 % (36.0-47.0); HEMOGLOBIN 14.1 g/dL (12.0-16.0); LYMPHOCYTES % (AUTO) 12.8 % (21.0-51.0); MEAN CORPUSCULAR HEMOGLOBIN 29.4 pg (27.0-34.0); MEAN CORPUSCULAR HGB CONC 35.6 g/dL (33.0-35.0); MEAN CORPUSCULAR VOLUME 82.5 fL (80.0-100.0); MEAN PLATELET VOLUME 8.1 fL (7.4-11.0); MONOCYTES # (AUTO) 0.5 x10^3/uL (0.3-0.8); MONOCYTES % (AUTO) 6.3 % (0.0-13.0); NEUTROPHILS # (AUTO) 6.3 x10^3/uL (2.2-4.8); NEUTROPHILS % (AUTO) 79.8 % (42.0-75.0); PLATELET COUNT 226 X10^3/uL (150.0-450.0); RED CELL DISTRIBUTION WIDTH 13.8 % (11.6-16.5); WHITE BLOOD COUNT 7.9 X10^3/uL (3.6-10.0)
[2016-09-22] MEDS: PROTONIX INJ 40 MG VIAL IVP SCH (09:20)
[2016-09-22 12:39] VITALS: BP 108/57
== END 2016-09-22 12:20 | disposition home or self-care (01) | DRG 446 ==
LOC: OBSVTOIN 13:21 → MED/SURG 13:21
PROVIDERS: ADMIT Internal Medicine; ATTEND Internal Medicine
PROC: 0DB68ZX Excision of Stomach, Via Natural or Artificial Opening Endoscopic, Diagnostic (ICD-10-PCS; principal; 2016-09-19 14:15)
DX: K82.8 Other specified diseases of gallbladder (principal); R10.11 Right upper quadrant pain; R11.2 Nausea with vomiting, unspecified; R10.13 Epigastric pain; K44.9 Diaphragmatic hernia without obstruction or gangrene; K20.8 Other esophagitis; K29.60 Other gastritis without bleeding; K21.9 Gastro-esophageal reflux disease without esophagitis
CPT/HCPCS: 36415; 78227; 80053; 84703; 85025; 94760; A4222; C9113; S0020; A4217; J0690; J1170; J1200; J2270; J2405; J3010; J3490; J7120

== ENCOUNTER → 2016-09-19 | Outpatient (CLI) | payer BC ==
--- NOTE | 2016-09-19 08:56 | US ---
Examination: Abdominal ultrasound. Clinical History: Nausea, abdominal distention. Technique: Real-time grayscale ultrasound was used to evaluate the upper abdomen. Comparison: CT of the abdomen and pelvis dated 07/26/2016. Findings: The study was technically difficult and somewhat suboptimal due to patient body habitus, as well as excessive bowel gas. The gallbladder is suboptimally distended with apparent borderline diffuse thickening of the gallbla dder wall. No cholelithiasis or pericholecystic fluid is noted. The gallbladder wall thickening may be due to suboptimal distention of the gallbladder. Other causes, including an acute or chronic chol ecystitis, hepatitis, congestive heart failure, hypoalbuminemia and other acute inflammatory process es in the right upper quadrant need to be excluded. A nuclear medicine hepatobiliary scan with eject ion fraction could be obtained to exclude the possibility of an acute or chronic cholecystitis. The common bile duct measures 5 mm in diameter and is within normal limits. No intrahepatic biliary ductal dilatation is noted. The liver is normal in echogenicity with no focal mass. The pancreas is obscured by bowel gas and could not be evaluated. The right kidney measures 7.3 cm in length and is suboptimally visualized with no focal mass, hydron ephrosis or nephrolithiasis noted. Impression: 1. The gallbladder is suboptimally distended with apparent borderline diffuse thickening of the gall bladder wall. No cholelithiasis or pericholecystic fluid is noted. The gallbladder wall thickening m ay be due to suboptimal distention of the gallbladder. Other causes, including an acute or chronic c holecystitis, hepatitis, congestive heart failure, hypoalbuminemia and other acute inflammatory proc esses in the right upper quadrant need to be excluded. A nuclear medicine hepatobiliary scan with ej ection fraction could be obtained to exclude the possibility of an acute or chronic cholecystitis. Reported By:
== END ==
LOC: RAD 08:03
PROVIDERS: ATTEND Nurse Practitioner Family
DX: R11.0 Nausea (principal); R63.0 Anorexia; R14.0 Abdominal distension (gaseous)
CPT/HCPCS: 76705

== ENCOUNTER → 2016-11-06 | Outpatient (CLI) | payer BC ==
--- NOTE | 2016-11-06 21:36 | RAD ---
HISTORY: 20-year-old female with left wrist pain and history of ganglion cyst. Study: Three views left wrist. Comparison: Left wrist radiographs May 02, 2016 Findings: No evidence for acute cortical disruption or dislocation can be identified. The carpal bones appear well aligned. The visualized portions of the distal radius and ulna are unremarkable. No significan t soft tissue abnormality can be identified. IMPRESSION: 1. Negative exam. Reported By:
== END ==
LOC: RAD 16:35
PROVIDERS: ATTEND Orthopaedic Surgery
DX: M67.432 Ganglion, left wrist (principal)
CPT/HCPCS: 73100

== ENCOUNTER → 2016-12-11 | Outpatient (CLI) | payer BC ==
--- NOTE | 2016-12-11 15:01 | RAD ---
HISTORY: Left wrist pain, no trauma Study: Left wrist AP, lateral, oblique Comparison: MRI left wrist 07/11/2016, plain films 05/02/2016 Findings: No evidence for acute cortical disruption or dislocation can be identified. The carpal bones appear well aligned. The visualized portions of the distal radius and ulna are unremarkable. No significan t soft tissue abnormality can be identified. The joints are normal. The navicular appears intact. IMPRESSION: 1. Negative exam. Reported By:
== END ==
LOC: RAD 14:26
PROVIDERS: ATTEND Nurse Practitioner Family
DX: M25.531 Pain in right wrist (principal)
CPT/HCPCS: 73100

== ENCOUNTER → 2017-01-04 | Outpatient (CLI) | payer BC ==
--- NOTE | 2017-01-04 20:22 | RAD ---
Examination: Left wrist, three views History: Ganglion cyst Comparison reference: 11/06/2016 Findings: There is no evidence for fracture, dislocation or bone destruction. Joint spaces are mainta ined. There is a 4.0 mm cyst again noted in the distal scaphoid. Impression: No significant change or acute abnormality noted. Reported By:
== END ==
LOC: RAD 16:49
PROVIDERS: ATTEND Specialist
DX: M67.432 Ganglion, left wrist (principal)
CPT/HCPCS: 73100

== ENCOUNTER 2017-04-01 23:06 | Observation (INO) | payer BC ==
--- NOTE | 2017-04-02 00:14 | DR.GENAD ---
HPI - PCP Primary Care Physician: RANDELL - Complaint/Symptoms Chief Complaint:: PAIN IN EPIGASTRIC AREA THAT RADIATES DOWN TO LEFT LOWER ABDOMEN. PATIENT HAS BEEN NAUSEATED. PATIENT HAS NOT HAD A BOWEL MOVEMENT IN 2 DAYS. 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 Past Surgical History: Yes Surgical History: Cholecystectomy - Family History History of Family Medical Conditions: Yes Family Medical History: Diabetes Mellitus, Cancer, [place], Hypertension - Social History Does patient currently use any type of tobacco product: No Have you used tobacco products in the last 12 months: No Type of Tobacco Use: None Does any household member use tobacco: No Alcohol Use: None Do you use any recreational Drugs:: No Lives With: Friend Lives Where: Home - infectious screening In the last 2 months have you had wt loss of >10#?: NO Have you had fever, night sweats or hemotysis?: No Have you traveled outside the country in the last 6 months?: No Isolation: Standard ROS - Review of Systems Constitutional: Fever PE - Vital Signs Vitals: Temperature 100.2 F Pulse Rate 120 Respiratory Rate 16 Blood Pressure [Left Arm] 108/57 Blood Pressure 128/90 O2 Sat by Pulse Oximetry 98 ROR - Labs Reviewed Result Diagrams: 04/02/17 00:24 04/02/17 00:24 Laboratory: WBC 11.8 X10^3/uL (3.6-10.0) H 04/02/17 00:24 RBC 4.97 X10^6/uL (3.5-5.4) 04/02/17 00:24 Hgb 15.0 g/dL (12.0-16.0) 04/02/17 00:24 Hct 41.6 % (36.0-47.0) 04/02/17 00:24 MCV 83.8 fL (80.0-100.0) 04/02/17 00:24 MCH 30.1 pg (27.0-34.0) 04/02/17 00:24 MCHC 35.9 g/dL (33.0-35.0) H 04/02/17 00:24 RDW 13.3 % (11.6-16.5) 04/02/17 00:24 Plt Count 338 X10^3/uL (150.0-450.0) 04/02/17 00:24 MPV 8.0 fL (7.4-11.0) 04/02/17:24 Neut % 71.8 % (42.0-75.0) 04/02/17:24 Lymph % 18.5 % (21.0-51.0) L 04/02/17:24 [place] % 8.0 % (0.0-13.0) 04/02/17:24 Eos % 1.3 % (0.9-2.9) 04/02/17 00:24 Baso % 0.4 % (0.2-1.0) 04/02/17 00:24 Neut # 8.4 x10^3/uL (2.2-4.8) H 04/02/17 00:24 Lymph # 2.2 X10^3/uL (1.3-2.9) 04/02/17 00:24 [place] # 0.9 x10^3/uL (0.3-0.8) H 04/02/17 00:24 Eos # 0.2 x10^3/uL (0.0-0.2) 04/02/17 00:24 Baso # 0.1 X10^3/uL (0.0-0.1) 04/02/17 00:24 Absolute Nucleated RBC 0.0 /100WBC 04/02/17 00:24 Sodium 139 mmol/L (136-145) 04/02/17 00:24 Corrected Sodium 139 mmol/L (136-145) 04/02/17 00:24 Potassium 3.7 mmol/L (3.5-5.1) 04/02/17 00:24 Chloride 102 mmol/L (98-107) 04/02/17 00:24 Carbon Dioxide 27.9 mmol/L (21-32) 04/02/17 00:24 BUN 15 mg/dL (7-18) 04/02/17 00:24 Creatinine 0.77 mg/dL (0.55-1.02) 04/02/17 00:24 Est GFR (MDRD) Af Amer > 60 (>60) 04/02/17 00:24 Est GFR (MDRD) Non-Af > 60 (>60) 04/02/17 00:24 Glucose 113 mg/dL (65-99) H 04/02/17 00:24 Calcium 8.7 mg/dL (8.5-10.1) 04/02/17 00:24 Corrected Calcium TNP 04/02/17 00:24 Total Bilirubin 0.30 mg/dL (0.2-1.0) 04/02/17 00:24 AST 14 Units/L (15-37) L 04/02/17:24 ALT 24 Units/L (12-78) 04/02/17 00:24 Alkaline Phosphatase 83 Units/L (46-116) 04/02/17 00:24 Total Protein 7.5 g/dL (6.4-8.2) 04/02/17 00:24 Albumin 3.6 g/dL (3.4-5.0) 04/02/17 00:24 Globulin 3.9 g/dL (2.5-4.5) 04/02/17 00:24 Albumin/Globulin Ratio 0.9 Ratio (1.1-2.1) L 04/02/17 00:24 Amylase 41 Units/L (25-115) 04/02/17 00:24 Lipase 145 Units/L (73-393) 04/02/17 00:24 Specimen Type Clean catch urine 04/02/17:12 Urine Color Yellow (YELLOW) 04/02/17:12 Urine Appearance Slightly hazy (CLEAR) 04/02/17 00:12 Urine pH 6.0 (5.0 - 8.0) 04/02/17 00:12 Ur Specific [place] 1.020 (1.000-1.030) 04/02/17:12 Urine Protein Negative (NEGATIVE) 04/02/17:12 Urine Glucose (UA) Negative (NEGATIVE) 04/02/17:12 Urine Ketones Negative (NEGATIVE) 04/02/17 00:12 Urine Occult Blood 4+ (NEGATIVE) 04/02/17: Urine Nitrite Negative (NEGATIVE) 04/02/17 00:12 Urine Bilirubin Negative (NEGATIVE) 04/02/17 00:12 Urine Urobilinogen Normal (NORMAL) 04/02/17 00:12 Ur Leukocyte Esterase 2+ (NEGATIVE) 04/02/17 00:12 Urine RBC 2-6 /HPF (NEGATIVE) 04/02/17 00:12 Urine WBC 2-6 /HPF (NEGATIVE) 04/02/17 00:12 Ur Squamous Epith Cells Numerous /HPF (NEGATIVE) 04/02/17 00:12 Urine Bacteria Trace /HPF (NEGATIVE) 04/02/17 00:12 Ur Culture Indicated? No/not indicated 04/02/17 00:12 - Discharge Plan Condition: Stable - Follow ups/Referrals Follow ups/Referrals: AGNIESZKA MEJIAS [Primary Care Provider] - 3 days - Instructions
[2017-04-02 00:36] LABS: BILIRUBIN,URINE NEGATIVE (NEGATIVE); BLOOD/HEMOGLOBIN,URINE 4+ (NEGATIVE); GLUCOSE, URINE NEGATIVE (NEGATIVE); KETONES,URINE NEGATIVE (NEGATIVE); LEUKOCYTE ESTERASE ,URINE 2+ (NEGATIVE); NITRITES,URINE NEGATIVE (NEGATIVE); PROTEIN,URINE NEGATIVE (NEGATIVE); UROBILINOGEN,URINE NORMAL (NORMAL)
[2017-04-02 00:38] LABS: BASOPHILS # (AUTO) 0.1 X10^3/uL (0.0-0.1); BASOPHILS % (AUTO) 0.4 % (0.2-1.0); EOSINOPHILS # (AUTO) 0.2 x10^3/uL (0.0-0.2); EOSINOPHILS % (AUTO) 1.3 % (0.9-2.9); HEMATOCRIT 41.6 % (36.0-47.0); LYMPHOCYTES # (AUTO) 2.2 X10^3/uL (1.3-2.9); LYMPHOCYTES % (AUTO) 18.5 % (21.0-51.0); MEAN CORPUSCULAR HEMOGLOBIN 30.1 pg (27.0-34.0); MEAN CORPUSCULAR HGB CONC 35.9 g/dL (33.0-35.0); MEAN CORPUSCULAR VOLUME 83.8 fL (80.0-100.0); MONOCYTES # (AUTO) 0.9 x10^3/uL (0.3-0.8); NEUTROPHILS # (AUTO) 8.4 x10^3/uL (2.2-4.8); NEUTROPHILS % (AUTO) 71.8 % (42.0-75.0); PLATELET COUNT 338 X10^3/uL (150.0-450.0); RED BLOOD COUNT 4.97 X10^6/uL (3.5-5.4); RED CELL DISTRIBUTION WIDTH 13.3 % (11.6-16.5); WHITE BLOOD COUNT 11.8 X10^3/uL (3.6-10.0)
--- NOTE | 2017-04-02 00:39 | CT ---
CT abdomen and pelvis without contrast Indication: Epigastric and left lower quadrant pain with nausea Comparison: 07/26/2016 Technique: Multiple axial images of the abdomen and pelvis were obtained from the lung bases to the pubic symphy sis without the administration of IV contrast. Findings: The visualized portions of the lung bases are unremarkable. The bony structures are grossly intact. Given the limitations of lack of IV contrast administration the liver, spleen, pancreas, and adrenal glands are unremarkable in their CT appearance. Previous cholecystectomy is noted. No evidence of stone within either kidney or ureter. No hydronephrosis is identified. No bowel wall thickening or bowel dilatation is present. The colon and rectum are unremarkable. The urinary bladder is grossly unremarkable. There is a mildly enlarged left adnexal cyst on axial imag e 83. The appendix is normal. No mesenteric lymphadenopathy or stranding can be observed. No free fluid or free air is seen within the abdomen. IMPRESSION: 1. Suspected mildly enlarged left adnexal cyst. No surrounding inflammatory change or fluid within the pelvis to suggest acute inflammation in this location. 2. The appendix is normal. 3. Prior cholecystectomy. Reported By:
[2017-04-02 00:47] LABS: APPEARANCE,URINE SLIGHTLY HAZY (CLEAR); BACTERIA,URINE TRACE /HPF (NEGATIVE); COLOR,URINE YELLOW (YELLOW); SQUAMOUS EPITHELIAL CELL,UR NUMEROUS /HPF (NEGATIVE)
[2017-04-02 00:49] LABS: ALANINE AMINOTRANSFERASE 24 Units/L (12-78); ALBUMIN 3.6 g/dL (3.4-5.0); ALKALINE PHOSPHATASE 83 Units/L (46-116); AMYLASE 41 Units/L (25-115); ASPARTATE AMINO TRANSFERASE 14 Units/L (15-37); BLOOD UREA NITROGEN 15 mg/dL (7-18); CALCIUM 8.7 mg/dL (8.5-10.1); CARBON DIOXIDE 27.9 mmol/L (21-32); CHLORIDE 102 mmol/L (98-107); COR NA(FOR HYPERGLY) 139 mmol/L (136-145); CREATININE 0.77 mg/dL (0.55-1.02); LIPASE 145 Units/L (73-393); SODIUM 139 mmol/L (136-145); TOTAL PROTEIN 7.5 g/dL (6.4-8.2); eGFR BLACK RACES > 60 (>60); eGFR NON BLACK RACES > 60 (>60)
[2017-04-02] MEDS ORDERED: ZOFRAN INJ 4 MG VIAL IVP PRN (01:55)
[2017-04-02] MEDS ORDERED: TYLENOL 325 MG TAB PO PRN (01:55)
[2017-04-02] MEDS ORDERED: PHENERGAN INJ 25 MG IVP PRN (01:55)
[2017-04-02] MEDS ORDERED: MORPHINE SULFATE INJ 2 MG INJ IVP PRN (01:55)
[2017-04-02] MEDS ORDERED: CHRONULAC PO ONE (02:07)
[2017-04-02] MEDS: TORADOL 30 MG VIAL IVP PRN ×2 (02:10→08:44)
[2017-04-02] MEDS: NS 1000 ML 1,000 ML IV SCH ×2 (02:11→19:17)
[2017-04-02] MEDS: PEPCID 20 MG IV PREMIX* 20 MG/50 ML BAG IV PRN ×2 (02:11→08:44)
[2017-04-02 02:39] VITALS: BMI 35.9
[2017-04-02] MEDS: CHRONULAC PO SCH ×2 (04:52→08:43)
[2017-04-02] MEDS ORDERED: DULCOLAX SUPPOSITORY 10 MG RECTAL ONE (09:36)
[2017-04-02] MEDS: CARAFATE PO SCH ×4 (10:57→21:11)
[2017-04-02] MEDS: LEVSIN/MAALOX/LIDOC VISC PO SCH (10:57)
[2017-04-02] MEDS: PROTONIX INJ 40 MG VIAL IVP SCH (10:57)
[2017-04-02] MEDS: NORCO 5/325 MG TAB PO PRN ×2 (11:38→19:05)
--- NOTE | 2017-04-02 18:05 | DR.H&P ---
H&P - History & Physical for Day of: H&P Date: 04/02/17 - Chief Complaint Chief Complaint: SEVERE UPPER ABDOMINAL PAIN AND BURNING - Allergies Allergies/Adverse Reactions: Allergies Allergy/AdvReac Type Severity Reaction Status Date / Time No Known Drug Allergies Allergy Unverified 09/20/16 00:38 [NKDA] - History of Present Illness History of Present Illness: 21 WF ER ADMISSION WITH CO INTRACTABLE ABDOMINAL PAIN, CANNOT GET RELIEF. PT HAD CT SCAN OF ABD/PELVIS REVEALING LEFT ADENXAL CYST. PT ADMITTED FOR FURTHER EVALUATION OF ACUTE ABDOMINAL PAIN AND PAIN CONTROL. - Past Medical History Past Medical History: GERD - Past Surgical History Surgical History: Cholecystectomy, Other - Family History Family Medical History: Diabetes Mellitus, Cancer, [place], Hypertension - Social History Does patient currently use any type of tobacco product: No Have you used tobacco products in the last 12 months: No Type of Tobacco Use: None Does any household member use tobacco: No Alcohol Use: None Drug Use: None - Medications Home Medications: Dextroamphetamine/Amphetamine [Adderall Xr 20 mg Capsule] 20 mg PO DAILY [History Confirmed 04/02/17] - Review of Systems Constitutional: No Symptoms Reported Eyes: No Symptoms Reported ENT: No Symptoms Reported Respiratory: No Symptoms Reported Cardiovascular: No Symptoms Reported Gastrointestinal: Nausea, Vomiting, Abdominal Pain Genitourinary: No Symptoms Reported Musculoskeletal: No Symptoms Reported Skin: No Symptoms Reported Neurological: No Symptoms Reported - Physical Exam Vital Signs: Temperature 98.4 F Pulse Rate [Right Brachial] 70 Pulse Rate 120 Respiratory Rate 18 Blood Pressure [Left Arm] 88/53 Blood Pressure 128/90 O2 Sat by Pulse Oximetry 99 Oriented: Normal Eyes: Normal Ear: Normal Nose: Normal Throat: Normal Respiratory: RLL Diminished, LLL Diminished Cardiovascular: Normal : Normal Auscultation: Bowel Sounds: Normal Palpation: Normal Tenderness: LUQ, Epigastric Skin: Normal Musculoskeletal: Normal Psychiatric: Anxiety Speech Pattern: Clear, Appropriate - Assessment/Plan (1) Abdominal pain Status: Acute Plan: PPI, PAIN CONTROL. GI COCKTAIL, NPO, TORADOL. UA, REPEAT AM LABS (2) Epigastric pain Status: Acute (3) Nausea & vomiting Status: Acute
[2017-04-03] MEDS: NS 1000 ML 1,000 ML IV SCH ×3 (01:23→11:21)
[2017-04-03 05:36] LABS: BASOPHILS % (AUTO) 0.4 % (0.2-1.0); EOSINOPHILS # (AUTO) 0.2 x10^3/uL (0.0-0.2); EOSINOPHILS % (AUTO) 3.1 % (0.9-2.9); HEMATOCRIT 37.5 % (36.0-47.0); HEMOGLOBIN 13.3 g/dL (12.0-16.0); LYMPHOCYTES # (AUTO) 1.6 X10^3/uL (1.3-2.9); LYMPHOCYTES % (AUTO) 29.4 % (21.0-51.0); MEAN CORPUSCULAR HGB CONC 35.4 g/dL (33.0-35.0); MEAN CORPUSCULAR VOLUME 84.6 fL (80.0-100.0); MEAN PLATELET VOLUME 8.4 fL (7.4-11.0); MONOCYTES # (AUTO) 0.5 x10^3/uL (0.3-0.8); MONOCYTES % (AUTO) 9.7 % (0.0-13.0); NEUTROPHILS # (AUTO) 3.2 x10^3/uL (2.2-4.8); NEUTROPHILS % (AUTO) 57.4 % (42.0-75.0); PLATELET COUNT 253 X10^3/uL (150.0-450.0); RED BLOOD COUNT 4.44 X10^6/uL (3.5-5.4); WHITE BLOOD COUNT 5.6 X10^3/uL (3.6-10.0)
[2017-04-03 05:44] LABS: ALANINE AMINOTRANSFERASE 34 Units/L (12-78); ALBUMIN 2.5 g/dL (3.4-5.0); ALKALINE PHOSPHATASE 67 Units/L (46-116); ASPARTATE AMINO TRANSFERASE 19 Units/L (15-37); BLOOD UREA NITROGEN 14 mg/dL (7-18); CALCIUM 7.8 mg/dL (8.5-10.1); CARBON DIOXIDE 28.4 mmol/L (21-32); CHLORIDE 108 mmol/L (98-107); SODIUM 142 mmol/L (136-145); TOTAL PROTEIN 5.7 g/dL (6.4-8.2); eGFR BLACK RACES > 60 (>60); eGFR NON BLACK RACES > 60 (>60)
[2017-04-03] MEDS: CARAFATE PO SCH ×2 (06:10→11:51)
[2017-04-03] MEDS: PROTONIX INJ 40 MG VIAL IVP SCH (08:30)
[2017-04-03] MEDS: CHRONULAC PO SCH (08:30)
[2017-04-03] MEDS: NORCO 5/325 MG TAB PO PRN (08:30)
[2017-04-03] MEDS: LEVSIN/MAALOX/LIDOC VISC PO SCH (09:08)
[2017-04-03 12:18] VITALS: BP 112/68
== END 2017-04-03 14:50 | disposition home or self-care (01) ==
LOC: ER 23:06 → MED/SURG 04-02 01:37
PROVIDERS: ADMIT Internal Medicine; ATTEND Internal Medicine
DX: R10.84 Generalized abdominal pain (principal); R10.13 Epigastric pain; R11.2 Nausea with vomiting, unspecified; D72.828 Other elevated white blood cell count; R19.7 Diarrhea, unspecified; R19.09 Other intra-abdominal and pelvic swelling, mass and lump
CPT/HCPCS: 36415; 74176; 80053; 81001; 82150; 83690; 85025; 96365; 96374; 96375; 99284; A4222; C9113; S0028; G0378; J1885; J2270; J2405; J2550

== ENCOUNTER → 2017-04-16 | Outpatient (CLI) | payer BC ==
[2017-04-03 12:18] VITALS: BP 112/68
[2017-04-16 12:42] LABS: CRYPTOSPORIDIUM PARVUM ANTIGEN NEGATIVE (NEGATIVE); GIARDIA LAMBLIA ANTIGEN NEGATIVE (NEGATIVE)
== END ==
LOC: LAB 10:16
PROVIDERS: ATTEND Nurse Practitioner Family
DX: R11.2 Nausea with vomiting, unspecified (principal)
CPT/HCPCS: 87045; 87328; 87329; 87336; 87427; 87493; 87899